=== PATIENT | male | born 1935 | race Caucasian/White ===

== ENCOUNTER 2022-11-11 16:44 | Inpatient (IN) | payer MEDICARE, SELFPAY ==
--- NOTE | ~2022-11-11 | XR_ITS ---
XR chest 1V portable DATE: 11/11/2022 18:35 INDICATION: Fall TECHNIQUE: Portable AP chest on 11/11/2022 at 1814 hours COMPARISON: None FINDINGS: There is dextroscoliosis and degenerative spurring of the thoracic spine. There is osteopen ia. Degenerative changes of both shoulder joints. Heart size appears within normal range. Is aortic arch calcification. There is prominent elevation of left diaphragm. There is left basilar atelectasis. The lungs otherwise appear clear. No pleural effu nilesh or pulmonary vascular congestion or pneumothorax is detected. IMPRESSION: Elevated left diaphragm and left basilar atelectasis Aortic atherosclerosis Reviewed, dictated and finalized at location A.
--- NOTE | ~2022-11-11 | XR_ITS ---
XR humerus RT DATE: 11/11/2022 18:35 INDICATION: Fall. Right arm injury TECHNIQUE: AP and lateral views COMPARISON: None FINDINGS: No fracture or dislocation, periosteal reaction or bone destruction. Degenerative change at the acromioclavicular and glenohumeral joints. IMPRESSION: No fracture or dislocation Reviewed, dictated and finalized at location A. IMPRESSION: No fracture or dislocation
--- NOTE | ~2022-11-11 | XR_ITS ---
EXAMINATION: XR barium swallow modified DATE: 11/13/2022 08:06 INDICATION: Dysphagia. Coughing with oral intake. TECHNIQUE: The patient was given barium-containing material of multiple consistencies to swallow by t mary speech pathologist while I performed fluoroscopy. Fluoroscopy exposure time was 1.3 minutes. The n umber of fluoroscopy images saved to the PACS was 1. Dose-area product was 0.82 Gy-cm^2. FINDINGS: There is reduced lingual movement causing premature spill. There is reduced laryngeal elevation, redu irma tongue base retraction, reduced pharyngeal squeeze, vallecular residue, piriform sinus residue, p haryngeal wall residue, laryngeal penetration, and silent aspiration. IMPRESSION: 1. Silent aspiration. 2. Please refer to the speech therapy report for recommendations. Reviewed, dictated and finalized at location A.
--- NOTE | ~2022-11-11 | CT_ITS ---
EXAMINATION: CT cervical spine wo con DATE: 11/11/2022 17:58 INDICATION: Fall. TECHNIQUE: Computed tomography (CT) of the cervical spine was performed without intravenous contrast. Automated exposure control and iterative reconstruction technique were employed. Exam dose: 103.85 mGy-cm total exam DLP. COMPARISON: None FINDINGS: There is moderately severe to severe degenerative disc disease at all levels except for mil d degenerative disc disease at C2-3. There is degenerative change at the apophyseal joints. There is prominent uncovertebral joint spurrin g from C3-4 through C6-7. No fracture or dislocation or locked facet or prevertebral soft tissue swelling. IMPRESSION: , Cervical spondylosis; no fracture or dislocation or locked facet Reviewed, dictated and finalized at Location A. Reviewed, dictated and finalized at location A.
--- NOTE | ~2022-11-11 | XR_ITS ---
XR shoulder RT min 2V DATE: 11/11/2022 18:35 INDICATION: Fall. Right shoulder injury, pain TECHNIQUE: 3 views COMPARISON: 11/11/2022 right humerus FINDINGS: There is degenerative change at the right acromioclavicular and glenohumeral joints. No fracture or dislocation, periosteal reaction or bone destruction or abnormal soft tissue calcifica tion. IMPRESSION: Degenerative changes; no fracture or dislocation Reviewed, dictated and finalized at location A.
--- NOTE | ~2022-11-11 | XR_ITS ---
XR hip BI 2V w AP pelvis DATE: 11/11/2022 18:35 INDICATION: Fall. TECHNIQUE: AP pelvis. AP and lateral views of each hip. COMPARISON: None FINDINGS: Parker catheter within the urinary bladder. Scoliosis and multilevel degenerative disc disease of the lumbar spine. Bilateral severe hip osteoarthritis. The pubic symphysis and sacroiliac joints are normally aligned. No pelvic fracture or bone destructio n is detected. No fracture or dislocation, avascular necrosis or bone destruction of either hip is de tected. IMPRESSION: Bilateral severe hip osteoarthritis Reviewed, dictated and finalized at location A.
--- NOTE | ~2022-11-11 | XR_ITS ---
XR elbow RT 2V DATE: 11/11/2022 18:35 INDICATION: Injury, elbow pain TECHNIQUE: 2 views COMPARISON: None FINDINGS: No fracture or dislocation or joint effusion, periosteal reaction or bone destruction of th e right elbow. IMPRESSION: Negative Reviewed, dictated and finalized at location A. IMPRESSION: Negative
--- NOTE | ~2022-11-11 | CT_ITS ---
EXAMINATION: CT brain wo con DATE: 11/11/2022 17:58 INDICATION: Fall. TECHNIQUE: Computed tomography (CT) of the head was performed without intravenous contrast. The mA wa s adjusted according to patient size. Iterative reconstruction technique was employed. Exam dose: 68 1.00 mGy-cm total exam DLP. COMPARISON: None FINDINGS: Bilateral vertebral artery and prominent bilateral carotid siphon internal carotid artery c alcifications. There is nonspecific diminished attenuation of the cerebral white matter, likely due t o chronic small vessel ischemic changes. Caval septum pellucidum and cavum vergae, anatomic variants. There is prominent central and cortical cerebral and cerebellar atrophy. No intracranial mass lesion or hemorrhage or cerebrovascular accident, midline shift or mass effect i s detected. No subdural or epidural hematoma is detected. Status post bilateral ocular lens replacements. The mastoid air cells and paranasal sinuses are unremarkable except for minimal mucoperiosteal thicke sanaz posterior left maxillary sinus and chronic thickening of the left maxillary sinus wall. No fract ure or bone destruction of the cranial vault. IMPRESSION: Cerebral atherosclerosis and chronic small vessel ischemic changes of the cerebral white matter Prominent central and cortical cerebral and cerebellar atrophy No acute intracranial finding or skull fracture Reviewed, dictated and finalized at Location A. Reviewed, dictated and finalized at location A.
--- NOTE | ~2022-11-11 | XR_ITS ---
XR forearm RT 2V DATE: 11/11/2022 18:35 INDICATION: Fall. Right upper extremity injury, pain TECHNIQUE: AP and lateral views of right forearm COMPARISON: None FINDINGS: No fracture or dislocation, periosteal reaction or bone destruction. Normal alignment at th e elbow and wrist joints. IMPRESSION: Negative Reviewed, dictated and finalized at location A. IMPRESSION: Negative
[2022-11-11 16:49] VITALS: BP 121/74; PULSE 105; RESP 18; TEMP 36.7; O2SAT 99
--- NOTE | 2022-11-11 16:59 | PC.NURSE ---
Pt has no noted VISIABLE head injury.
--- NOTE | 2022-11-11 17:26 | ECG_ITS ---
Measurements Intervals Ada Rate: 103 P: NE: 0 QRS: 35 QRSD: 82 T: 73 QT: 326 QTc: 428 Interpretive Statements ATRIAL FIBRILLATION WITH RAPID VENTRICULAR RESPONSE BORDERLINE R WAVE PROGRESSION, ANTERIOR LEADS NONSPECIFIC ST & T-WAVE ABNORMALITY- LAT/HIGH LAT LEADS BASELINE ARTIFACT- I, II, III, AVR, AVL, AVF, V1-V6 ABNORMAL ECG NO PREVIOUS ECG AVAILABLE FOR COMPARISON Electronically Signed On 11-11-2022 20:41:01 CDT by Wolf Leiva D.O.
--- NOTE | 2022-11-11 17:28 | ED.FALL ---
HPI - Fall General Chief Complaint: Fall Stated Complaint: fall Time Seen by Provider: 11/11/22 17:02 History of Present Illness HPI Narrative: 87-year-old male, pmhx and medications unknown, reports from [facility] via [facility] for evaluation of a fall. [facility] reports they were dropping a previous patient off when they noticed this patient laying on the floor, picked him up and brought him to the ED. According to the patient, he was trying to take his pants off to get into the shower and was having difficulty then fell on his right side landing on his right shoulder, elbow, right hip. He reports hitting his head on his right catholic. Fall was unwitnessed and patient arrived to [facility] with c-collar and Parker in place. Patient denies LOC, headache, vision changes. Last tetanus unknown. Related Data Home Medications Medication Instructions Recorded Confirmed acetaminophen 325 mg tablet 650 mg PO DIRECTED PRN Pain 11/11/22 11/11/22 (Tylenol) ascorbic acid (vitamin C) 250 mg 500 mg PO BID 11/11/22 11/11/22 chewable tablet aspirin 81 mg capsule 81 mg PO DAILY 11/11/22 11/11/22 carbidopa 25 mg-levodopa 250 mg 1 tablet PO BID 11/11/22 11/11/22 tablet guaifenesin 600 mg tablet, 600 mg PO BID 11/11/22 11/11/22 extended release 12 hr (Mucinex) ondansetron 4 mg disintegrating See Rx Instructions .Route 11/11/22 11/11/22 tablet .COMPLEX PRN Nausea polyethylene glycol 3350 17 17 g PO DAILY PRN Constipation 11/11/22 11/11/22 gram/dose oral powder (Miralax) potassium chloride 20 mEq oral 20 meq PO BID 11/11/22 11/11/22 packet tamsulosin 0.4 mg capsule (Flomax) 0.4 mg PO QHS 11/11/22 11/11/22 vancomycin 125 mg capsule See Rx Instructions .Route .COMPLEX 11/11/22 11/11/22 Allergies Allergy/AdvReac Type Severity Reaction Status Date / Time lisinopril Allergy Unknown Verified 11/11/22 19:30 Review of Systems Review of Systems: CONSTITUTIONAL: Denies fever, chills EYES: Denies visual changes, redness, or discharge. ENT: Denies rhinorrhea, congestion, sore throat, or otalgia. CARDIOVASCULAR: Denies chest pain, palpitations, or edema. RESPIRATORY: Denies cough or dyspnea. GASTROINTESTINAL: Denies abdominal pain, nausea, vomiting, or diarrhea. GENITOURINARY: Denies dysuria or hematuria. SKIN: Denies rash or itching. MUSCULOSKELETAL: See HPI NEUROLOGIC: Denies headache, numbness, dizziness, or weakness. PSYCHIATRIC: Denies anxiety or depression. [facility] Family History Family History (Updated 11/11/22 @ 22:13 by Birdie Birmingham RN) Other Unknown family medical history Social History Social History Smoking status: Unknown if ever smoked Alcohol intake: unknown Substance use: unknown Spiritual care concerns: No Exam Narrative: GENERAL: Well-appearing, well-nourished, and in no acute distress. Patient resting in exam bed with c-collar and Parker in place. He is conversational. HEAD: Normocephalic, atraumatic. Tenderness to the right catholic. No ecchymosis or laceration. EYES: PERRLA and EOMI. ENT: Nares clear, no rhinorrhea or epistaxis. Mucous membranes moist. Oropharynx without tonsillar hypertrophy exudate or other lesions. Hearing aids in place NECK: C-collar in place CHEST: Clear to auscultation. No respiratory distress. No wheezes rales or rhonchi HEART: Regular rate and rhythm. No murmur heard. Normal peripheral pulses. ABDOMEN: Soft, nontender, nondistended, normal active bowel sounds. EXTREMITIES: Tenderness to the right shoulder, right elbow, and right hip. BUE with older ecchymosis and healing abrasions. No tenderness to LUE. No chest wall tenderness. No tenderness to left hip. No tenderness to thoracic and lumbosacral, no step offs or deformities. Pt moving all extremities spontaneously. Radial and DP pulses 2+. Sensation intact throughout. SKIN: 4cm stage 4 ulcer to sacrum with an additional 1-2cm of undermining. Surround
[2022-11-11 18:53] LABS: Basophils Absolute Auto 0.1 K/mm3 (0.0-0.1); Basophils Percent Auto 0.2 % (0.2-1.2); Hematocrit 41.1 % (42.0-52.0); Hemoglobin 13.4 g/dL (14.0-18.0); Immature Granulocyte Absolute 0.28 K/mm3 (0.00-0.031); Immature Granulocyte Percent A 0.9 % (0-0.5); Lymphocytes Absolute Auto 0.88 K/mm3 (0.9-3.2); Lymphocytes Percent Auto 2.7 % (18.3-44.2); Mean Corpuscular HGB Conc 32.6 g/dl (32-36); Mean Corpuscular Hemoglobin 31.6 pg (26-34); Mean Corpuscular Volume 96.9 fl (80-100); Mean Platelet Volume 9.4 fl (7.4-10.4); Monocytes Absolute Auto 0.9 K/mm3 (0.1-0.6); Monocytes Percent Auto 2.8 % (2.6-8.5); Neutrophils Absolute Auto 30.7 K/mm3 (1.3-6.7); Neutrophils Percent Auto 93.4 % (45.5-73.1); Platelet Count Result 484 k/mm3 (150-375); Red Blood Count 4.24 M/mm3 (4.6-6.20); Red Cell Distribution Width 14.2 % (11.5-14.5); White Blood Count 32.8 K/mm3 (4.5-10.0)
--- NOTE | 2022-11-11 18:57 | PC.NURSE ---
PT HAS A STAGE 4 TO COCCYX.
[2022-11-11 19:03] LABS: INR 1.2; Prothrombin Time 14.6 Seconds (11.1-14.7)
[2022-11-11 19:04] LABS: Partial Thromboplastin Time 25.9 SECONDS (22.3-36.8)
[2022-11-11 19:09] LABS: Alanine Aminotransferase 16 U/L (6-50); Albumin Level 3.2 g/dL (3.5-5.1); Alkaline Phosphatase 151 U/L (38-126); Anion Gap 9 mmol/L (8-16); Aspartate Amino Transferase 30 U/L (17-59); Bilirubin,Total 0.7 mg/dL (0.2-1.3); Blood Urea Nitrogen 25 mg/dL (9-20); Calcium 8.4 mg/dL (8.4-10.2); Carbon Dioxide 26 mmol/L (22-30); Chloride 100 mmol/L (98-107); Creatine Kinase 57 U/L (55-170); Estimated Glomerular Filt Rate 57; Glucose 123 mg/dL (65-110); Potassium 3.5 mmol/L (3.4-5.0); Sodium 135 mmol/L (137-145)
--- NOTE | 2022-11-11 19:18 | PC.NURSE ---
Report received from HOMER Andrade. Assumed care of patient at this time.
[2022-11-11 19:19] LABS: Troponin I < 0.012 ng/mL (0.000-0.034)
[2022-11-11] MEDS: SODIUM CHLORIDE 0.9% IV 1,000 ML 500 ML IV CONT (19:24)
[2022-11-11 19:41] VITALS: BP 100/63; PULSE 110; RESP 18; O2SAT 97
[2022-11-11 19:52] LABS: Appearance Urine Turbid (Clear); Bacteria Urine 4+ /hpf; Bilirubin Urine 1+ (Negative); Blood Urine 3+ (Negative); Color Urine Dark Yellow (Yellow); Glucose Urine UA Negative (Negative); Ketones Urine 1+ mg/dL (Negative); Leukocyte Esterase Ur 3+ LEU/UL (Negative); Need Manual Microscopic Reviewed; Nitrate Urine Negative (Negative); Protein Urine 3+ mg/dL (Negative); RBC Urine 21-50 /hpf (0-2); Specific Grav Ur 1.019 (1.001-1.035); Squamous Epithelial Cell Urine Many /hpf (Few); WBC Urine >100 /hpf
[2022-11-11 19:54] LABS: Add Urine Microscopic? YES
[2022-11-11] MEDS: PIPERACILLN/TAZ 3.375GM/NS50ML 3.375 GM/50 ML BAG IVPB (20:02)
--- NOTE | 2022-11-11 20:03 | PM.IMHP ---
H&P: HPI History of Present Illness Date/Time: 11/11/22 20:03 Chief Complaint: Fall Narrative: This is a 87-year-old male the resides at residential past medical history significant for Alzheimer's disease, hypertension, benign prostatic hyperplasia, decubitus ulcer. Patient had a witnessed fall by EMS personal when dropping another patient at residential facility. Was brought for evaluation to the emergency room. Patient is unable to give much history preliminary workup was significant for urinalysis with numerous WBCs patient is known to have a chronic indwelling Parker catheter, he was found to have a leukocyte count of 32,000, telemetry showed atrial fibrillation. Patient is been admitted for further evaluation management and treatment. Review of Systems Review of Systems: ROS unobtainable: Yes unobtainable due to mental status (Dementia) [facility] Family History Family History (Updated 11/11/22 @ 22:13 by Birdie Birmingham RN) Other Unknown family medical history Meds Home Medications and Allergies Home Medications Medication Instructions Recorded Confirmed Type acetaminophen 325 mg tablet mg 11/11/22 History (Tylenol) ascorbic acid (vitamin C) 250 mg 11/11/22 History chewable tablet aspirin 81 mg capsule mg 11/11/22 History carbidopa 25 mg-levodopa 100 mg tablet 11/11/22 History tablet (Sinemet) guaifenesin 600 mg tablet, mg PO 11/11/22 History extended release 12 hr (Mucinex) miconazole 50 mg buccal tablet mg buccal 11/11/22 History ondansetron 4 mg disintegrating mg 11/11/22 History tablet polyethylene glycol 3350 17 g 11/11/22 History gram/dose oral powder (Miralax) potassium chloride 20 mEq oral meq 11/11/22 History packet tamsulosin 0.4 mg capsule (Flomax) mg PO 11/11/22 History vancomycin 10 gram intravenous g 11/11/22 History solution Allergies Allergy/AdvReac Type Severity Reaction Status Date / Time lisinopril Allergy Unknown Verified 11/11/22 19:30 Vital Signs Vital Signs - 24 hr 11/11/22 16:49 11/11/22 19:41 Temperature 98.1 F Pulse Rate 105 H 110 H Respiratory Rate 18 18 Blood Pressure 121/74 100/63 Pulse Oximetry 99 97 Oxygen Delivery Room Air Exam Narrative: Laying in bed Const: General: no acute distress, well developed, alert, awake, ill appearing, uncomfortable and cachectic Nutritional Appearance: average body habitus Orientation/consciousness: patient oriented x3 HENMT: Head: normal to inspection, normocephalic and atraumatic Ears: hearing grossly normal bilaterally Face/Nose/Sinus: normal facial exam Face and sinus: normal facial exam Eyes: General: appearance normal, both eyes and all related structures Pupils: Equal, round and reactive pupils present EOM: EOMs intact bilaterally Neck: Neck: full ROM, no lymphadenopathy and no JVD Thyroid: thyroid normal Lymphatic: no lymphadenopathy noted Resp: Effort & Inspection: normal respiratory effort and able to speak in complete sentences Auscultation: clear to auscultation bilaterally Cardio: Jugular venous distension: no JVD Rate: regular rate Rhythm: regular rhythm Heart sounds: S1 normal heart sound present and S2 normal heart sound present GI: GI Palp: Yes Soft to palpation and Yes No hepatosplenomegaly present : General: Yes deferred Back/Spine/Pelvis: Other: Sacral stage IV decubitus ulcer Skin: Wounds: wounds noted (Sacral stage IV decubitus ulcer left hip stage II decubitus ulcer ) Other: Right heel unstageable Neuro: General: oriented to person and CN's II-XI intact bilaterally Cranial nerves: Yes Equal, round and reactive pupils present Cognition (Neuro): abnormal cognition (Dementia) Speech: normal speech Gait exam (Neuro): Unable to assess gait Motor exam (neuro): 5/5 motor strength present throughout and Other motor observations present (Spasticity) Extrem: General: normal to inspection, full ROM, no joint enlargement and no pedal e
[2022-11-11] MEDS: TETANUS,DIPHTHERIA,AC PERTUSSIS ADULT (0.5 ML) BOOSTRIX IM (20:05)
[2022-11-11 20:33] VITALS: BP 120/54; PULSE 94; RESP 17; O2SAT 97
[2022-11-11] MEDS: SODIUM CHLORIDE 0.9% IV 1,000 ML 999 ML IV CONT (20:42)
[2022-11-11 21:44] VITALS: BP 96/69; PULSE 86; RESP 18; TEMP 36.4; O2SAT 95
[2022-11-11 21:45] VITALS: BMI 17.0
--- NOTE | 2022-11-11 21:51 | PC.NURSE ---
This patient, Tim Myers, was admitted to Medical Room 349-01 on 11/11/[address] [facility]. Patient/family oriented to hospital policies and general routines including ID bracelet, bed and alarms, visiting hours, pain management, procedures, bathroom and other care routines, personal items, smoking policy, room service/diet, and visiting hours. Information on how to activate the Rapid Response Team has been discussed. Patient/Family are encouraged to report perceived risks to care and to ask questions if they do not understand what they are told or what they should do.
[2022-11-11] MEDS: SODIUM CHLORIDE 0.9% IV 1,000 ML 125 ML IV CONT (21:56)
[2022-11-11 22:36] LABS: Troponin I < 0.012 ng/mL (0.000-0.034)
[2022-11-11] MEDS: LIDOCAINE HCL 2% GEL UROJET 10 ML PKG MUCOUS MEM (23:07)
--- NOTE | 2022-11-11 23:40 | PC.NURSE ---
wound photos taken but unable to load into computer, biomed notified of malfunctioning camera, agility called for pressure reducing mattress. Waffle boots in place
[2022-11-12] VITALS (9 sets, daily range): BP systolic 93–120; BP diastolic 47–65; PULSE 77–97; RESP 16–20; TEMP 35.9–36.6; O2SAT 95–100
[2022-11-12 01:23] LABS: Troponin I 0.019 ng/mL (0.000-0.034)
[2022-11-12 07:17] LABS: Appearance Urine Turbid (Clear); Bacteria Urine None Seen /hpf; Bilirubin Urine Negative (Negative); Blood Urine 2+ (Negative); Color Urine Yellow (Yellow); Glucose Urine UA Negative (Negative); Ketones Urine 1+ mg/dL (Negative); Leukocyte Esterase Ur 3+ LEU/UL (Negative); Nitrate Urine Positive (Negative); Protein Urine 2+ mg/dL (Negative); Squamous Epithelial Cell Urine None seen /hpf (Few); WBC Clumps Urine Present /HPF; WBC Urine >100 /hpf; pH Urine 5.5 (5.0-9.0)
[2022-11-12 07:48] LABS: Add Urine Microscopic? YES
[2022-11-12] MEDS: CARBIDOPA/LEVODOPA 25/250 MG TABLET 1 TABLET PO ×2 (09:49→16:54)
[2022-11-12] MEDS: SODIUM CHLORIDE 0.9% IV 1,000 ML 125 ML IV CONT ×2 (09:49→16:58)
[2022-11-12] MEDS: VANCOMYCIN ORAL 125 MG/2.5 ML SYRUP PO ×4 (09:49→23:53)
[2022-11-12] MEDS: guaiFENesin 12 HR 600 MG TABCR PO ×2 (09:49→21:19)
[2022-11-12] MEDS: ASPIRIN 81 MG ENTERIC TABLET PO (09:49)
[2022-11-12] MEDS: ASCORBIC ACID 500 MG TABLET PO ×2 (09:49→16:54)
[2022-11-12 10:28] LABS: Basophils Absolute Auto 0.1 K/mm3 (0.0-0.1); Basophils Percent Auto 0.2 % (0.2-1.2); Eosinophils Absolute Auto 0.1 K/mm3 (0-0.3); Eosinophils Percent Auto 0.2 % (0-4.4); Hematocrit 35.4 % (42.0-52.0); Hemoglobin 11.5 g/dL (14.0-18.0); Immature Granulocyte Absolute 0.23 K/mm3 (0.00-0.031); Immature Granulocyte Percent A 0.9 % (0-0.5); Lymphocytes Absolute Auto 1.25 K/mm3 (0.9-3.2); Lymphocytes Percent Auto 5.1 % (18.3-44.2); Mean Corpuscular HGB Conc 32.5 g/dl (32-36); Mean Corpuscular Hemoglobin 32.6 pg (26-34); Mean Corpuscular Volume 100.3 fl (80-100); Mean Platelet Volume 9.2 fl (7.4-10.4); Monocytes Absolute Auto 0.7 K/mm3 (0.1-0.6); Monocytes Percent Auto 2.8 % (2.6-8.5); Neutrophils Absolute Auto 22.3 K/mm3 (1.3-6.7); Neutrophils Percent Auto 90.8 % (45.5-73.1); Platelet Count Result 371 k/mm3 (150-375); Red Blood Count 3.53 M/mm3 (4.6-6.20); Red Cell Distribution Width 14.5 % (11.5-14.5); White Blood Count 24.6 K/mm3 (4.5-10.0)
[2022-11-12 10:46] LABS: Anion Gap 6 mmol/L (8-16); Blood Urea Nitrogen 18 mg/dL (9-20); Calcium 7.5 mg/dL (8.4-10.2); Carbon Dioxide 23 mmol/L (22-30); Chloride 109 mmol/L (98-107); Estimated CRCL calculation 41 ml/min; Estimated Glomerular Filt Rate > 60; Glucose 84 mg/dL (65-110); Potassium 3.1 mmol/L (3.4-5.0); Sodium 138 mmol/L (137-145)
[2022-11-12 11:47] LABS: Burr Cells 2+ (NORMAL); Platelet Estimate Adequate (Adequate); Poikilocytosis 1+ (NORMAL); Schistocytes None Seen (NORMAL)
--- NOTE | 2022-11-12 12:26 | PM.IMPN ---
Progress Note: A&P Assessment and Plan (1) Fall: Qualifiers: Encounter type: initial encounter Qualified Code(s): W19.XXXA - Unspecified fall, initial encounter Code(s): W19.XXXA - Unspecified fall, initial encounter Status: Acute Assessment and Plan: No acute injuries Fall precautions (2) Decubitus ulcer of back, stage 4: Code(s): L89.104 - Pressure ulcer of unspecified part of back, stage 4 Status: Acute Assessment and Plan: Local care Wound care consult (3) Urinary tract infection: Qualifiers: Hematuria presence: with hematuria Urinary tract infection type: acute cystitis Qualified Code(s): N30.01 - Acute cystitis with hematuria Code(s): N39.0 - Urinary tract infection, site not specified Status: Acute Assessment and Plan: Started on Rocephin (4) Atrial fibrillation: Qualifiers: Atrial fibrillation type: unspecified Qualified Code(s): I48.91 - Unspecified atrial fibrillation Code(s): I48.91 - Unspecified atrial fibrillation Status: Acute Assessment and Plan: Rate controlled Continue to monitor Seems to be new onset Fall risk, no anticoagulation. 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 difficile colitis: Code(s): A04.72 - Enterocolitis due to Clostridium difficile, not specified as recurrent Status: Acute Assessment and Plan: Continue oral vanc. Subjective Date/time seen: 11/12/22 12:26 No new complaints Exam Narrative: Laying in bed Const: General: no acute distress, well developed, alert, awake, ill appearing, uncomfortable, average body habitus and cachectic Nutritional Appearance: average body habitus and cachectic Orientation/consciousness: oriented to person and patient oriented x3 HENMT: Head: normal to inspection, normocephalic and atraumatic Ears: hearing grossly normal bilaterally Face/Nose/Sinus: normal facial exam Face and sinus: normal facial exam Eyes: General: appearance normal, both eyes and all related structures Pupils: Equal, round and reactive pupils present EOM: EOMs intact bilaterally Neck: Neck: full ROM, no lymphadenopathy and no JVD Thyroid: thyroid normal Lymphatic: no lymphadenopathy noted Resp: Effort & Inspection: normal respiratory effort and able to speak in complete sentences Auscultation: clear to auscultation bilaterally Cardio: Jugular venous distension: no JVD Rate: regular rate Rhythm: regular rhythm Heart sounds: S1 normal heart sound present and S2 normal heart sound present : General: Yes deferred Back/Spine/Pelvis: Other: Sacral stage IV decubitus ulcer Skin: General skin exam: wounds noted (Sacral stage IV decubitus ulcer left hip stage II decubitus ulcer ) Wounds: wounds noted (Sacral stage IV decubitus ulcer left hip stage II decubitus ulcer ) Other: Right heel unstageable Neuro: General: oriented to person, patient oriented x3, CN's II-XI intact bilaterally and Unable to assess gait Cranial nerves: Yes Equal, round and reactive pupils present Cognition (Neuro): abnormal cognition (Dementia) Speech: normal speech Gait exam (Neuro): Unable to assess gait Motor exam (neuro): 5/5 motor strength present throughout and Other motor observations present (Spasticity) Extrem: General: normal to inspection, full ROM, no joint enlargement and no pedal edema Other: Multiple bruises and skin tears localized in limbs only right upper extremity hand Objective Data Vital Signs Vital Signs: Vital Signs - 24 hr 11/11/22 16:49 11/11/22 19:41 11/11/22 20:33 Temperature 98.1 F Pulse Rate 105 H 110 H 94 Respiratory Rat
[2022-11-12] MEDS: POTASSIUM CHLORIDE 20 MEQ PACKET (FOR LIQUID) PO ×2 (13:28→16:54)
[2022-11-12] MEDS: TAMSULOSIN HCL 0.4 MG CAPSULE PO (21:19)
[2022-11-13] VITALS (9 sets, daily range): BP systolic 94–133; BP diastolic 56–75; PULSE 73–97; RESP 16–18; TEMP 35.9–36.8; O2SAT 96–99; BMI 17.0
[2022-11-13 06:04] LABS: Basophils Percent Auto 0.2 % (0.2-1.2); Eosinophils Absolute Auto 0.2 K/mm3 (0-0.3); Eosinophils Percent Auto 0.9 % (0-4.4); Hematocrit 33.1 % (42.0-52.0); Hemoglobin 10.6 g/dL (14.0-18.0); Immature Granulocyte Absolute 0.14 K/mm3 (0.00-0.031); Immature Granulocyte Percent A 0.7 % (0-0.5); Lymphocytes Percent Auto 5.4 % (18.3-44.2); Mean Platelet Volume 9.3 fl (7.4-10.4); Monocytes Absolute Auto 0.7 K/mm3 (0.1-0.6); Monocytes Percent Auto 3.6 % (2.6-8.5); Neutrophils Absolute Auto 18.1 K/mm3 (1.3-6.7); Neutrophils Percent Auto 89.2 % (45.5-73.1); Platelet Count Result 322 k/mm3 (150-375); Red Blood Count 3.31 M/mm3 (4.6-6.20); Red Cell Distribution Width 14.4 % (11.5-14.5); White Blood Count 20.3 K/mm3 (4.5-10.0)
[2022-11-13] MEDS: SODIUM CHLORIDE 0.9% IV 1,000 ML 125 ML IV CONT ×2 (06:23→16:16)
[2022-11-13] MEDS: VANCOMYCIN ORAL 125 MG/2.5 ML SYRUP PO (06:24)
[2022-11-13 09:05] LABS: Anion Gap 7 mmol/L (8-16); Blood Urea Nitrogen 13 mg/dL (9-20); Calcium 7.1 mg/dL (8.4-10.2); Carbon Dioxide 22 mmol/L (22-30); Chloride 107 mmol/L (98-107); Estimated CRCL calculation 46 ml/min; Estimated Glomerular Filt Rate > 60; Glucose 71 mg/dL (65-110); Potassium 3.2 mmol/L (3.4-5.0); Sodium 136 mmol/L (137-145)
[2022-11-13] MEDS: POTASSIUM CHLORIDE 20 MEQ PACKET (FOR LIQUID) PO (09:11)
[2022-11-13] MEDS: ASCORBIC ACID 500 MG TABLET PO (09:11)
[2022-11-13] MEDS: CARBIDOPA/LEVODOPA 25/250 MG TABLET 1 TABLET PO (09:11)
[2022-11-13] MEDS: guaiFENesin 12 HR 600 MG TABCR PO (09:12)
[2022-11-13] MEDS: ASPIRIN 81 MG ENTERIC TABLET PO (09:12)
--- NOTE | 2022-11-13 10:01 | PCSTNOTE ---
Please refer to the Modified Barium Swallow Evaluation in the EMR.
[2022-11-13] MEDS: SILVERGEL (ELTA) 45 ML 1 APPLIC TOPICAL (16:06)
--- NOTE | 2022-11-13 16:10 | PM.IMPN ---
Progress Note: A&P Assessment and Plan (1) Fall: Qualifiers: Encounter type: initial encounter Qualified Code(s): W19.XXXA - Unspecified fall, initial encounter Code(s): W19.XXXA - Unspecified fall, initial encounter Status: Acute Assessment and Plan: No acute injuries Fall precautions (2) Decubitus ulcer of back, stage 4: Code(s): L89.104 - Pressure ulcer of unspecified part of back, stage 4 Status: Acute Assessment and Plan: Local care Wound care consult (3) Urinary tract infection: Qualifiers: Hematuria presence: with hematuria Urinary tract infection type: acute cystitis Qualified Code(s): N30.01 - Acute cystitis with hematuria Code(s): N39.0 - Urinary tract infection, site not specified Status: Acute Assessment and Plan: cx noted adjust antibiotics and await sensitivities (4) Atrial fibrillation: Qualifiers: Atrial fibrillation type: unspecified Qualified Code(s): I48.91 - Unspecified atrial fibrillation Code(s): I48.91 - Unspecified atrial fibrillation Status: Acute Assessment and Plan: Rate controlled Continue to monitor Seems to be new onset Fall risk, no anticoagulation. 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 difficile colitis: Code(s): A04.72 - Enterocolitis due to Clostridium difficile, not specified as recurrent Status: Acute Assessment and Plan: Continue oral vanc. Subjective Date/time seen: 11/13/22 16:10 no new complaints Exam Narrative: Laying in bed Const: General: no acute distress, well developed, alert, awake, ill appearing, uncomfortable, average body habitus and cachectic Nutritional Appearance: average body habitus and cachectic Orientation/consciousness: oriented to person and patient oriented x3 HENMT: Head: normal to inspection, normocephalic and atraumatic Ears: hearing grossly normal bilaterally Face/Nose/Sinus: normal facial exam Face and sinus: normal facial exam Eyes: General: appearance normal, both eyes and all related structures Pupils: Equal, round and reactive pupils present EOM: EOMs intact bilaterally Neck: Neck: full ROM, no lymphadenopathy and no JVD Thyroid: thyroid normal Lymphatic: no lymphadenopathy noted Resp: Effort & Inspection: normal respiratory effort and able to speak in complete sentences Auscultation: clear to auscultation bilaterally Cardio: Jugular venous distension: no JVD Rate: regular rate Rhythm: regular rhythm Heart sounds: S1 normal heart sound present and S2 normal heart sound present : General: Yes deferred Back/Spine/Pelvis: Other: Sacral stage IV decubitus ulcer Skin: General skin exam: wounds noted (Sacral stage IV decubitus ulcer left hip stage II decubitus ulcer ) Wounds: wounds noted (Sacral stage IV decubitus ulcer left hip stage II decubitus ulcer ) Other: Right heel unstageable Neuro: General: oriented to person, patient oriented x3, CN's II-XI intact bilaterally and Unable to assess gait Cranial nerves: Yes Equal, round and reactive pupils present Cognition (Neuro): abnormal cognition (Dementia) Speech: normal speech Gait exam (Neuro): Unable to assess gait Motor exam (neuro): 5/5 motor strength present throughout and Other motor observations present (Spasticity) Extrem: General: normal to inspection, full ROM, no joint enlargement and no pedal edema Other: Multiple bruises and skin tears localized in limbs only right upper extremity hand Objective Data Vital Signs Vital Signs: Vital Signs - 24 hr 11/12/22 20:00 11/12/22 22:00 11/13/22 00:00 Temperature 96.7 F L Pulse R
--- NOTE | 2022-11-13 17:07 | PC.NURSE ---
Dr Guerrero notified of pt failing MBS
[2022-11-13] MEDS: CEFEPIME 2 GM/NS 50 ML 2 GM/50 ML BAG IVPB (17:43)
[2022-11-14] VITALS (9 sets, daily range): BP systolic 110–122; BP diastolic 56–63; PULSE 81–92; RESP 18; TEMP 36.7–36.8; O2SAT 98
[2022-11-14] MEDS: CEFEPIME 2 GM/NS 50 ML 2 GM/50 ML BAG IVPB ×2 (04:48→18:20)
[2022-11-14] MEDS: SODIUM CHLORIDE 0.9% IV 1,000 ML 100 ML IV CONT ×2 (04:48→16:51)
--- NOTE | 2022-11-14 10:05 | PC.NURSE ---
Holding PO medications as patient is NPO and failed modified barium swallow
--- NOTE | 2022-11-14 10:11 | P.CDI_ITS ---
CDI Query Clarified Diagnosis Clarified Diagnosis: Urine Culture from 11/11/22 grew >100,000 Klebsiella Pneumoniae > 100,000 Pseudomonas Aeruginosa Chronic indwelling Barbosa catheter documented. Pt started on IV Cefepime Q 12hrs. Clarification request - UTI has been documented, chronic indwelling barbosa catheter documented. Please clarify if UTI is: * due to/associated with chronic indwelling barbosa catheter * not due to/associated with chronic indwelling barbosa catheter * unable to determine
--- NOTE | 2022-11-14 12:46 | PM.IMPN ---
Progress Note: A&P Assessment and Plan (1) Fall: Qualifiers: Encounter type: initial encounter Qualified Code(s): W19.XXXA - Unspecified fall, initial encounter Code(s): W19.XXXA - Unspecified fall, initial encounter Status: Acute Assessment and Plan: No acute injuries Fall precautions (2) Decubitus ulcer of back, stage 4: Code(s): L89.104 - Pressure ulcer of unspecified part of back, stage 4 Status: Acute Assessment and Plan: Local care Wound care consult (3) Urinary tract infection: Qualifiers: Hematuria presence: with hematuria Urinary tract infection type: acute cystitis Qualified Code(s): N30.01 - Acute cystitis with hematuria Code(s): N39.0 - Urinary tract infection, site not specified Status: Acute Assessment and Plan: cx noted adjust antibiotics and await sensitivities (4) Atrial fibrillation: Qualifiers: Atrial fibrillation type: unspecified Qualified Code(s): I48.91 - Unspecified atrial fibrillation Code(s): I48.91 - Unspecified atrial fibrillation Status: Acute Assessment and Plan: Rate controlled Continue to monitor Seems to be new onset Fall risk, no anticoagulation. 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 difficile colitis: Code(s): A04.72 - Enterocolitis due to Clostridium difficile, not specified as recurrent Status: Acute Assessment and Plan: Continue oral vanc. (8) Dysphagia: Code(s): R13.10 - Dysphagia, unspecified Status: Acute Assessment and Plan: Patient has risk for aspiration. Appreciate speech pathology involvement and ongoing care. Currently NPO. Subjective Date/time seen: 11/14/22 12:46 No new complaints today. Patient reports he wants to eat. Failed modified barium swallow yesterday, patient is currently NPO. Exam Narrative: Laying in bed Const: General: no acute distress, well developed, alert, awake, ill appearing, uncomfortable, average body habitus and cachectic Nutritional Appearance: average body habitus and cachectic Orientation/consciousness: oriented to person and patient oriented x3 HENMT: Head: normal to inspection, normocephalic and atraumatic Ears: hearing grossly normal bilaterally Face/Nose/Sinus: normal facial exam Face and sinus: normal facial exam Eyes: General: appearance normal, both eyes and all related structures Pupils: Equal, round and reactive pupils present EOM: EOMs intact bilaterally Neck: Neck: full ROM, no lymphadenopathy and no JVD Thyroid: thyroid normal Lymphatic: no lymphadenopathy noted Resp: Effort & Inspection: normal respiratory effort and able to speak in complete sentences Auscultation: clear to auscultation bilaterally Cardio: Jugular venous distension: no JVD Rate: regular rate Rhythm: regular rhythm Heart sounds: S1 normal heart sound present and S2 normal heart sound present : General: Yes deferred Back/Spine/Pelvis: Other: Sacral stage IV decubitus ulcer Skin: General skin exam: wounds noted (Sacral stage IV decubitus ulcer left hip stage II decubitus ulcer ) Wounds: wounds noted (Sacral stage IV decubitus ulcer left hip stage II decubitus ulcer ) Other: Right heel unstageable Neuro: General: oriented to person, patient oriented x3, CN's II-XI intact bilaterally and Unable to assess gait Cranial nerves: Yes Equal, round and reactive pupils present Cognition (Neuro): abnormal cognition (Dementia) Speech: normal speech Gait exam (Neuro): Unable to assess gait Motor exam (neuro): 5/5 motor strength present throughout and Other motor observations present (Spasticity)
[2022-11-14] MEDS: SILVERGEL (ELTA) 45 ML 1 APPLIC TOPICAL (16:52)
[2022-11-15] VITALS (9 sets, daily range): BP systolic 109–144; BP diastolic 53–78; PULSE 67–99; RESP 16–20; TEMP 36.5–36.7; O2SAT 98–99
[2022-11-15] MEDS: SODIUM CHLORIDE 0.9% IV 1,000 ML 100 ML IV CONT ×2 (03:29→20:46)
[2022-11-15] MEDS: CEFEPIME 2 GM/NS 50 ML 2 GM/50 ML BAG IVPB (05:03)
[2022-11-15] MEDS: SILVERGEL (ELTA) 45 ML 1 APPLIC TOPICAL (09:46)
[2022-11-15 10:35] LABS: Hematocrit 36.3 % (42.0-52.0); Hemoglobin 11.4 g/dL (14.0-18.0); Mean Corpuscular HGB Conc 31.4 g/dl (32-36); Mean Corpuscular Hemoglobin 31.7 pg (26-34); Mean Corpuscular Volume 100.8 fl (80-100); Mean Platelet Volume 8.9 fl (7.4-10.4); Platelet Count Result 354 k/mm3 (150-375); Red Cell Distribution Width 14.6 % (11.5-14.5); White Blood Count 16.5 K/mm3 (4.5-10.0)
[2022-11-15 10:50] LABS: Anion Gap 7 mmol/L (8-16); Blood Urea Nitrogen 6 mg/dL (9-20); Calcium 7.3 mg/dL (8.4-10.2); Carbon Dioxide 22 mmol/L (22-30); Chloride 107 mmol/L (98-107); Estimated CRCL calculation 53 ml/min; Estimated Glomerular Filt Rate > 60; Glucose 65 mg/dL (65-110); Magnesium 1.7 mg/dL (1.6-2.3); Potassium 2.6 mmol/L (3.4-5.0); Sodium 136 mmol/L (137-145)
[2022-11-15] MEDS: MAGNESIUM SULF 2 GM/WATER 50ML 2 GM/50 ML BAG IVPB (12:54)
[2022-11-15] MEDS: POTASSIUM CHLORIDE INJ 40 MEQ in SODIUM CHLORIDE 0.9% IV 500 ML 130 MEQ IVPB (13:57)
--- NOTE | 2022-11-15 18:13 | PM.IMPN ---
Progress Note: A&P Assessment and Plan (1) Fall: Qualifiers: Encounter type: initial encounter Qualified Code(s): W19.XXXA - Unspecified fall, initial encounter Code(s): W19.XXXA - Unspecified fall, initial encounter Status: Acute Assessment and Plan: No acute injuries Fall precautions 11/15/2022 interval history: 87-year-old male elderly frail with C diff colitis unable to provide any history review of systems, patient is unable to swallow, discussed with the patient's daughter who is his POA, does not want NG tube to prolong the life has decided the place the patient on comfort measures, we have ordered the comfort measures for the patient and will monitor. (2) Decubitus ulcer of back, stage 4: Code(s): L89.104 - Pressure ulcer of unspecified part of back, stage 4 Status: Acute Assessment and Plan: Local care Wound care consult (3) Urinary tract infection: Qualifiers: Hematuria presence: with hematuria Urinary tract infection type: acute cystitis Qualified Code(s): N30.01 - Acute cystitis with hematuria Code(s): N39.0 - Urinary tract infection, site not specified Status: Acute Assessment and Plan: cx noted adjust antibiotics and await sensitivities (4) Atrial fibrillation: Qualifiers: Atrial fibrillation type: unspecified Qualified Code(s): I48.91 - Unspecified atrial fibrillation Code(s): I48.91 - Unspecified atrial fibrillation Status: Acute Assessment and Plan: Rate controlled Continue to monitor Seems to be new onset Fall risk, no anticoagulation. 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 difficile colitis: Code(s): A04.72 - Enterocolitis due to Clostridium difficile, not specified as recurrent Status: Acute Assessment and Plan: Continue oral vanc. (8) Dysphagia: Code(s): R13.10 - Dysphagia, unspecified Status: Acute Assessment and Plan: Patient has risk for aspiration. Appreciate speech pathology involvement and ongoing care. Currently NPO. Subjective Date/time seen: 11/15/22 18:13 11/15/2022 interval history: 87-year-old male elderly frail with C diff colitis unable to provide any history review of systems, patient is unable to swallow, discussed with the patient's daughter who is his POA, does not want NG tube to prolong the life has decided the place the patient on comfort measures, we have ordered the comfort measures for the patient and will monitor. Review of Systems Review of Systems: ROS unobtainable: Yes unobtainable due to mental status (Dementia) Exam Narrative: Elderly frail Patient is comfortable, NAD HEENT: eyes are clear and none icteric LUNGS: Normal respiratory effort ABD: Not distended Lower extremities: no edema SKIN: nonjaundiced Neuro: grossly intact. Objective Data Vital Signs Vital Signs: Vital Signs - 24 hr 11/14/22 22:00 11/14/22 20:00 11/15/22 00:00 Temperature 98.1 F Pulse Rate 88 92 85 Respiratory Rate 18 Blood Pressure 110/57 L Pulse Oximetry 98 Oxygen Delivery 11/15/22 06:00 11/15/22 04:00 11/15/22 09:30 Temperature 98.1 F Pulse Rate 80 78 Respiratory Rate 16 Blood Pressure 111/59 L Pulse Oximetry 98 Oxygen Delivery Room Air 11/15/22 08:00 11/15/22 12:00 11/15/22 14:00 Temperature 97.7 F Pulse Rate 79 82 78 Respiratory Rate 16 Blood Pressure 109/53 L Pulse Oximetry 98 Oxygen Delivery 11/15/22 16:00 Temperature Pulse Rate 84 Respiratory Rate Blood Pressure Pulse Oximetry Oxygen Delivery Intake/Output Intake/Output: Intake & Output 0
--- NOTE | 2022-11-15 18:42 | PC.NURSE ---
Attempted to call patient's daughter Joanne with update. Call went straight to voicemail.
[2022-11-16] VITALS (8 sets, daily range): BP systolic 103–105; BP diastolic 50–51; PULSE 71–94; RESP 18–20; TEMP 36.7–37.1; O2SAT 98–99
--- NOTE | 2022-11-16 09:34 | PCSTNOTE ---
Per nurse patient is now receiving oral feeding based on family and physician decision. Comfort measures have been initiated. Discharge from speech therapy recommended at this time.
[2022-11-16] MEDS: SODIUM CHLORIDE 0.9% IV 1,000 ML 100 ML IV CONT (13:03)
--- NOTE | 2022-11-16 15:11 | PM.IMPN ---
Progress Note: A&P Assessment and Plan (1) Fall: Qualifiers: Encounter type: initial encounter Qualified Code(s): W19.XXXA - Unspecified fall, initial encounter Code(s): W19.XXXA - Unspecified fall, initial encounter Status: Acute Assessment and Plan: No acute injuries Fall precautions 11/16/2022 interval history: 87-year-old male elderly frail with C diff colitis unable to provide any history review of systems, patient is unable to swallow, on 11/14 I discussed with the patient's daughter who is his POA, does not want NG tube to prolong the life has decided the place the patient on comfort measures, we have ordered the comfort measures for the patient and patient is given food as tolerated with understandble risk of aspiration, family has decided to place patient under hospice, will discharge tomorrow, (2) Decubitus ulcer of back, stage 4: Code(s): L89.104 - Pressure ulcer of unspecified part of back, stage 4 Status: Acute Assessment and Plan: Local care Wound care consult (3) Urinary tract infection: Qualifiers: Hematuria presence: with hematuria Urinary tract infection type: acute cystitis Qualified Code(s): N30.01 - Acute cystitis with hematuria Code(s): N39.0 - Urinary tract infection, site not specified Status: Acute Assessment and Plan: cx noted adjust antibiotics and await sensitivities (4) Atrial fibrillation: Qualifiers: Atrial fibrillation type: unspecified Qualified Code(s): I48.91 - Unspecified atrial fibrillation Code(s): I48.91 - Unspecified atrial fibrillation Status: Acute Assessment and Plan: Rate controlled Continue to monitor Seems to be new onset Fall risk, no anticoagulation. 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 difficile colitis: Code(s): A04.72 - Enterocolitis due to Clostridium difficile, not specified as recurrent Status: Acute Assessment and Plan: Continue oral vanc. (8) Dysphagia: Code(s): R13.10 - Dysphagia, unspecified Status: Acute Assessment and Plan: Patient has risk for aspiration. Appreciate speech pathology involvement and ongoing care. Currently NPO. Subjective Date/time seen: 11/16/22 15:11 11/16/2022 interval history: 87-year-old male elderly frail with C diff colitis unable to provide any history review of systems, patient is unable to swallow, on 11/14 I discussed with the patient's daughter who is his POA, does not want NG tube to prolong the life has decided the place the patient on comfort measures, we have ordered the comfort measures for the patient and patient is given food as tolerated with understandble risk of aspiration, family has decided to place patient under hospice, will discharge tomorrow, Review of Systems Review of Systems: ROS unobtainable: Yes unobtainable due to mental status (Dementia) Exam Narrative: Elderly frail Patient is comfortable, NAD HEENT: eyes are clear and none icteric LUNGS: Normal respiratory effort ABD: Not distended Lower extremities: no edema SKIN: nonjaundiced Neuro: grossly intact. Objective Data Vital Signs Vital Signs: Vital Signs - 24 hr 11/15/22 16:00 11/15/22 20:00 11/15/22 20:00 Temperature Pulse Rate 84 99 84 Respiratory Rate 16 Blood Pressure Pulse Oximetry 98 Oxygen Delivery Room Air 11/15/22 22:00 11/16/22 00:00 11/16/22 04:00 Temperature 98.1 F Pulse Rate 67 87 77 Respiratory Rate 20 Blood Pressure 144/78 H Pulse Oximetry 99 Oxygen Delivery 11/16/22 07:45 11/16/22 08:00 11/16/22 12:00 Temperature Pulse R
[2022-11-16] MEDS: SILVERGEL (ELTA) 45 ML 1 APPLIC TOPICAL (18:20)
[2022-11-16 20:55] LABS: Glucose Point of Care 176 mg/dl (65-105)
[2022-11-17] VITALS: PULSE 85
[2022-11-17 04:00] VITALS: PULSE 85
[2022-11-17 06:00] VITALS: BP 138/77; PULSE 76; RESP 18; TEMP 37.3; O2SAT 98
[2022-11-17] MEDS: ASPIRIN 81 MG ENTERIC TABLET PO (09:38)
[2022-11-17] MEDS: CARBIDOPA/LEVODOPA 25/250 MG TABLET 1 TABLET PO (09:38)
[2022-11-17] MEDS: guaiFENesin 12 HR 600 MG TABCR PO (09:38)
[2022-11-17] MEDS: ASCORBIC ACID 500 MG TABLET PO (09:39)
[2022-11-17] MEDS: POTASSIUM CHLORIDE 20 MEQ PACKET (FOR LIQUID) PO (09:39)
--- NOTE | 2022-11-17 10:53 | PM.DS ---
DS: Admitting Diagnosis Discharge Date 11/17/2022 Admitting Diagnosis Fall DS: Discharge Diagnosis Discharge Diagnosis (1) Fall: Qualifiers: Encounter type: initial encounter Qualified Code(s): W19.XXXA - Unspecified fall, initial encounter Code(s): W19.XXXA - Unspecified fall, initial encounter Status: Acute Assessment and Plan: No acute injuries Fall precautions 11/16/2022 interval history: 87-year-old male elderly frail with C diff colitis unable to provide any history review of systems, patient is unable to swallow, on 11/14 I discussed with the patient's daughter who is his POA, does not want NG tube to prolong the life has decided the place the patient on comfort measures, we have ordered the comfort measures for the patient and patient is given food as tolerated with understandble risk of aspiration, family has decided to place patient under hospice, will discharge tomorrow, (2) Decubitus ulcer of back, stage 4: Code(s): L89.104 - Pressure ulcer of unspecified part of back, stage 4 Status: Acute Assessment and Plan: Local care Wound care consult (3) Urinary tract infection: Qualifiers: Hematuria presence: with hematuria Urinary tract infection type: acute cystitis Qualified Code(s): N30.01 - Acute cystitis with hematuria Code(s): N39.0 - Urinary tract infection, site not specified Status: Acute Assessment and Plan: cx noted adjust antibiotics and await sensitivities (4) Atrial fibrillation: Qualifiers: Atrial fibrillation type: unspecified Qualified Code(s): I48.91 - Unspecified atrial fibrillation Code(s): I48.91 - Unspecified atrial fibrillation Status: Acute Assessment and Plan: Rate controlled Continue to monitor Seems to be new onset Fall risk, no anticoagulation. 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 difficile colitis: Code(s): A04.72 - Enterocolitis due to Clostridium difficile, not specified as recurrent Status: Acute Assessment and Plan: Continue oral vanc. (8) Dysphagia: Code(s): R13.10 - Dysphagia, unspecified Status: Acute Assessment and Plan: Patient has risk for aspiration. Appreciate speech pathology involvement and ongoing care. Currently NPO. DS: Summary Hospital Course Reason for hospitalization: Fall Narrative: This is a 87-year-old male the resides at [facility] past medical history significant for Alzheimer's disease, hypertension, benign prostatic hyperplasia, decubitus ulcer.? Patient had a witnessed fall by EMS personal when dropping another patient at [facility] facility.? Was brought for evaluation to the emergency room.? Patient is unable to give much history preliminary workup was significant for urinalysis with numerous WBCs patient is known to have a chronic indwelling Parker catheter, he was found to have a leukocyte count of 32,000, telemetry showed atrial fibrillation.? Patient is been admitted for further evaluation management and treatment. Hospital Course: 87-year-old male elderly frail with C diff colitis unable to provide any history review of systems, patient is unable to swallow, on 11/14 I? discussed with the patient's daughter who is his POA, does not want NG tube to prolong the life has decided the place the patient on comfort measures, we have ordered the comfort measures for the patient and patient is given food as tolerated with understandble risk of aspiration, family has decided to place patient under hospice, will discharge tomorrow, Patient being discharged to [facility] where he will be admitted under hospice c
[2022-11-17 14:10] LABS: EDCOVIDSCREEN Negative (Negative)
== END 2022-11-17 14:51 | disposition hospice, home (50) | DRG 698 ==
LOC: ANHED 20:11 → ANH3MED 20:45
PROVIDERS: Chiropractor; Admitting Provider Internal Medicine; Emergency Provider Physician Assistant; PCP Internal Medicine; Visit Provider Family Medicine
DX: T83.511A Infection and inflammatory reaction due to indwelling urethral catheter, initial encounter (principal); L89.104 Pressure ulcer of unspecified part of back, stage 4; L97.429 Non-pressure chronic ulcer of left heel and midfoot with unspecified severity; A04.72 Enterocolitis due to Clostridium difficile, not specified as recurrent; R64 Cachexia; Z68.1 Body mass index [BMI] 19.9 or less, adult; N39.0 Urinary tract infection, site not specified; Z20.822 Contact with and (suspected) exposure to COVID-19; I48.91 Unspecified atrial fibrillation; G20 Parkinson's disease; R13.10 Dysphagia, unspecified; W18.2XXA Fall in (into) shower or empty bathtub, initial encounter; I25.10 Atherosclerotic heart disease of native coronary artery without angina pectoris; E78.5 Hyperlipidemia, unspecified; I10 Essential (primary) hypertension; G30.9 Alzheimer's disease, unspecified; N40.0 Benign prostatic hyperplasia without lower urinary tract symptoms
CPT/HCPCS: 36415; 70450; 71045; 72125; 73030; 73060; 73070; 73090; 73521; 80048; 80053; 81001; 82550; 82948; 83735; 84484; 85025; 85027; 85610; 85730; 87077; 87086; 87186; 87426; 90471; 90715; 92611; 93005; 96365; 96375; 99285; A9270; C9803; J0131; J0692; J0696; J2543; J3475; J3480; J7030; J7040